=== PATIENT | male | born 1975 | race Caucasian/White ===

== ENCOUNTER 2016-12-25 13:34 | Emergency (ER) | payer BC ==
[2016-12-25 13:35] VITALS: BMI 21.5
[2016-12-25 13:42] VITALS: BP 115/71; PULSE 72; RESP 18; TEMP 96.8; O2SAT 99
--- NOTE | 2016-12-25 14:44 | ED PDOC ---
Lower Extremity Pain/Injury Time Seen by Provider: 12/25/16 13:43 Chief Complaint (Nursing): Lower Extremity Problem/Injury Chief Complaint (Provider): Lower Extremity Problem/Injury History Per: Patient History/Exam Limitations: no limitations Onset/Duration Of Symptoms: Mins (<1 hour prior to arrival ) Current Symptoms Are (Timing): Still Present Additional Complaint(s): Mani Parekh is a 41 year old male presenting to the ED for an evaluation of a left foot injury occurring prior to arrival. The patient states less than one hour prior to arrival a hand-truck accidentally dropped on his left foot. The patient noticed swelling to his left foot immediately after the accident. He denies numbness and tingling. PMD: Cecelia Caldwell MD Past Medical History Reviewed: Historical Data, Nursing Documentation, Vital Signs Vital Signs: Last Vital Signs Temp 96.8 F L 12/25/16 13:39 Pulse 72 12/25/16 13:39 Resp 18 12/25/16 13:39 BP 115/71 12/25/16 13:39 Pulse Ox 99 12/25/16 13:39 - Medical History PMH: Asthma (in childhood) - Family History Family History: States: Unknown Family Hx - Social History Current smoker - smoking cessation education provided: Yes Alcohol: Other Drugs: Cannabis - Home Medications Home Medications: Ambulatory Orders Medication Instructions Recorded Cyclobenzaprine [Flexeril] 5 mg PO BID PRN #10 tab 09/23/14 Ibuprofen [Motrin Tab] 800 mg PO TID #30 tab 09/23/14 Azithromycin [Zithromax] 250 mg PO DAILY #6 tablet 06/10/15 Ibuprofen [Motrin] 600 mg PO Q6H PRN #10 tab 06/10/15 Cyclobenzaprine [Flexeril] 10 mg PO Q8 PRN #15 tab 07/06/15 oxyCODONE/Acetaminophen [Percocet 1 ea PO Q6H PRN #15 tab 07/06/15 5/325 mg Tab] - Allergies Allergies/Adverse Reactions: Allergies Allergy/AdvReac Type Severity Reaction Status Date / Time No Known Allergies Allergy Verified 12/25/16 13:57 Review of Systems Musculoskeletal: Positive for: Foot Pain (left foot pain and swelling) Neurological: Negative for: Numbness (and no tingling) Physical Exam - Reviewed Nursing Documentation Reviewed: Yes Vital Signs Reviewed: Yes - Physical Exam Appears: Positive for: No Acute Distress Head Exam: Positive for: ATRAUMATIC, NORMOCEPHALIC Pulses-Dorsalis Pedis (L): 2+ Pulses-Dorsalis Pedis (R): 2+ Extremity: Positive for: Capillary Refill (<2 seconds), Other (dorsal surface of left foot: golf ball size swelling with tenderness). Negative for: Deformity (and no ecchymosis ) Neurologic/Psych: Positive for: Alert, Oriented - ECG O2 Sat by Pulse Oximetry: 99 (RA) Pulse Ox Interpretation: Normal Medical Decision Making Medical Decision Making: Time: 13:43 Impression: Lower Extremity Problem/Injury Plan: * [RAD] Foot Left 3 Views Routine * Reevaluation X-ray showed no fracture. Applied Light dressing on foot and crutches were provided. Scribe Attestation: Documented by Raven Teixeira, acting as a scribe for Martínez Cox PA-C. Provider Scribe Attestation: All medical record entries made by the Scribe were at my direction and personally dictated by me. I have reviewed the chart and agree that the record accurately reflects my personal performance of the history, physical exam, medical decision making, and the department course for this patient. I have also personally directed, reviewed, and agree with the discharge instructions and disposition. Disposition - Clinical Impression Clinical Impression: Foot contusion - Patient ED Disposition Is Patient to be Admitted: No - Disposition Referrals: [facility] [Outside] Gilberto Braun DPM [[facility]] - Disposition: Routine/Home Disposition Time: 14:15 Condition: STABLE Instructions: Foot Contusion (ED), RICE Therapy (ED) Forms: Dakota Carl (Turkmen), [facility] ED School/Work Excuse Print Language: KAZAKH
--- NOTE | 2016-12-25 22:36 | RAD ---
PROCEDURE: Left Foot Radiographs. HISTORY: trauma COMPARISON: None. FINDINGS: BONES: Normal. No fracture. JOINTS: Normal. SOFT TISSUES: Dorsal soft tissue swelling. OTHER FINDINGS: None. IMPRESSION: Dorsal soft tissue swelling.
== END 2016-12-25 14:39 | disposition home or self-care (01) ==
LOC: H.ER 13:34
DX: S90.32XA Contusion of left foot, initial encounter (principal); W22.8XXA Striking against or struck by other objects, initial encounter; Y92.89 Other specified places as the place of occurrence of the external cause

== ENCOUNTER 2017-07-30 15:05 | Emergency (ER) | payer BC ==
[2017-07-30 15:06] VITALS: BMI 21.5
[2017-07-30 15:12] VITALS: RESP 18; TEMP 97.8; O2SAT 99
[2017-07-30] MEDS ORDERED: Sodium Chloride 0.9% 1,000 ML IV STA (15:33)
--- NOTE | 2017-07-30 15:36 | ED PDOC ---
HPI: Male Pain Time Seen by Provider: 07/30/17 15:27 Chief Complaint (Nursing): Male Genitourinary Chief Complaint (Provider): Testicular pain History Per: Patient History/Exam Limitations: no limitations Additional Complaint(s): Pt reports sudden onset of bilateral testicular pain X 15 minutes, no trauma, no heavy lifting, also feels bump L groin. Denies fever, nausea, vomiting, abdominal pain, dysuria, hematuria, penile discharge. Past Medical History Reviewed: Nursing Documentation, Vital Signs Vital Signs: Last Vital Signs Temp 97.8 F 07/30/17 15:10 Pulse 72 07/30/17 15:10 Resp 18 07/30/17 15:10 BP 122/82 07/30/17 15:10 Pulse Ox 99 07/30/17 15:10 - Medical History PMH: Asthma (in childhood) - Surgical History Other surgeries: Hemorrhoidectomy - Family History Family History: States: Unknown Family Hx - Social History Current smoker - smoking cessation education provided: No Alcohol: None - Home Medications Home Medications: Ambulatory Orders Medication Instructions Recorded Cyclobenzaprine [Flexeril] 5 mg PO BID PRN #10 tab 09/23/14 Ibuprofen [Motrin Tab] 800 mg PO TID #30 tab 09/23/14 Azithromycin [Zithromax] 250 mg PO DAILY #6 tablet 06/10/15 Ibuprofen [Motrin] 600 mg PO Q6H PRN #10 tab 06/10/15 Cyclobenzaprine [Flexeril] 10 mg PO Q8 PRN #15 tab 07/06/15 oxyCODONE/Acetaminophen [Percocet 1 ea PO Q6H PRN #15 tab 07/06/15 5/325 mg Tab] - Allergies Allergies/Adverse Reactions: Allergies Allergy/AdvReac Type Severity Reaction Status Date / Time No Known Allergies Allergy Verified 12/25/16 13:57 Review of Systems Constitutional: Negative for: Fever, Chills Cardiovascular: Negative for: Chest Pain Respiratory: Negative for: Cough, Shortness of Breath Gastrointestinal: Negative for: Nausea, Vomiting, Abdominal Pain, Diarrhea Genitourinary Male: Positive for: Scrotal Pain (Bilateral testicular pain). Negative for: Dysuria, Hematuria, Penile Discharge, Rash, Penile Pain Musculoskeletal: Negative for: Back Pain Skin: Negative for: Rash, Lesions Neurological: Negative for: Headache, Dizziness Physical Exam - Reviewed Nursing Documentation Reviewed: Yes Vital Signs Reviewed: Yes - Physical Exam Appears: Positive for: Uncomfortable Skin: Positive for: Normal Color, Warm, Dry Cardiovascular/Chest: Positive for: Regular Rate, Rhythm Respiratory: Positive for: Normal Breath Sounds Male Genital Exam: Positive for: normal genitalia, no hernia, inguinal tenderness (L), testicular tenderness (R), testicular tenderness (L), other ( Normal lie bilateral testicles). Negative for: bleeding, erythema, urethral discharge Back: Positive for: Normal Inspection Extremity: Positive for: Tenderness Neurologic/Psych: Positive for: Alert, Oriented - ECG O2 Sat by Pulse Oximetry: 99 Medical Decision Making Medical Decision Makin yo male with bilateral testicular pain. - labs - testicular ultrasound - CT abd/pelvis - Morphine - IVF Disposition - Disposition
[2017-07-30 16:08] LABS: BASO # 0.1 K/uL (0.0-0.2); BASO % 1.3 % (0.0-2.0); EOS # 0.2 K/uL (0.0-0.7); EOS % 2.5 % (0.0-4.0); HEMOGLOBIN 13.8 g/dL (12.0-18.0); LYMPH # 2.9 K/uL (1.0-4.3); LYMPH % 40.4 % (20.0-40.0); MEAN CELL VOLUME 98.5 fl (80.0-94.0); MEAN CORPUSCULAR HEMOGLOBIN 33.2 pg (27.0-31.0); MEAN CORPUSCULAR HGB CONC 33.7 g/dL (33.0-37.0); MEAN PLATELET VOLUME 8.6 fl (7.2-11.7); MONO # 0.6 K/uL (0.0-0.8); MONO % 8.7 % (0.0-10.0); NEUT # 3.4 K/uL (1.8-7.0); NEUT % 47.1 % (50.0-75.0); RBC 4.15 Mil/uL (4.40-5.90); RED CELL DISTRIBUTION WIDTH 13.3 % (11.5-14.5); WHITE BLOOD COUNT 7.1 K/uL (4.8-10.8)
[2017-07-30 16:16] LABS: INR 1.2 (0.9-1.2); PROTHROMBIN TIME 13.5 Seconds (9.8-13.1)
[2017-07-30 16:17] LABS: PARTIAL THROMBOPLASTIN TIME 33.9 Seconds (25.6-37.1)
[2017-07-30 16:48] LABS: ALB/GLOB RATIO 1.3 (1.0-2.1); ALBUMIN 4.1 g/dL (3.5-5.0); ALT/SGPT 33 U/L (21-72); AST/SGOT 30 U/L (17-59); BLOOD UREA NITROGEN 23 mg/dl (9-20); CALCIUM 9.6 mg/dL (8.4-10.2); GFR AFRICAN-AMERICAN > 60; GFR NON-AFRICAN AMERICAN > 60
--- NOTE | 2017-07-30 17:04 | US ---
HISTORY: Bilateral pain TECHNIQUE: Realtime sonography through the scrotum with color and doppler flow. COMPARISON: None Available. FINDINGS: RIGHT TESTICLE: Measures 3.7 x 1.8 x 3.0 cm. Normal echotexture and flow. RIGHT EPIDIDYMIS: Epididymal head measures 0.9 x 0.8 x 0.8 cm. Grossly unremarkable appearance with normal flow. LEFT TESTICLE: Measures 4.0 x 2.0 x 2.9 cm. Normal echotexture and flow. LEFT EPIDIDYMIS: Epididymal head measures 0.7 x 0.8 x 1.0 cm. Grossly unremarkable appearance with normal flow. HYDROCELE: None. VARICOCELE: None. OTHER FINDINGS: None. IMPRESSION: Unremarkable testicular ultrasound
[2017-07-30 18:39] LABS: URINE BILIRUBIN NEGATIVE (NEGATIVE); URINE BLOOD NEGATIVE (NEGATIVE); URINE CLARITY SLIGHTY-CLOUDY (Clear); URINE COLOR YELLOW (YELLOW); URINE GLUCOSE (UA) NEG (Normal); URINE LEUKOCYTE ESTERASE NEG Leu/uL (Negative); URINE PROTEIN NEGATIVE (NEGATIVE); URINE UROBILINOGEN 0.2-1.0 mg/dL (0.2-1.0)
[2017-07-30] MEDS ORDERED: Iohexol 300 100 ML IJ ONE (18:52)
[2017-07-30] MEDS ORDERED: Sodium Chloride 0.9% 100 ML ONE (18:53)
--- NOTE | 2017-07-30 19:22 | ED PDOC ---
- Laboratory Results Result Diagrams: 07/30/17 16:04 07/30/17 16:04 - ECG O2 Sat by Pulse Oximetry: 99 - Progress Re-evaluation Time: 20:45 Condition: Re-examined, Improved Medical Decision Making Medical Decision Making: Time: 19:00 Patient signed over to me by Dr. Arana pending CT abdomen, reevaluation, and final disposition. Time: 20:47 CT Abdomen and Pelvis: FINDINGS: Lung bases: No acute abnormality as visualized. ABDOMEN: Liver: No acute abnormality as visualized. Gallbladder and bile ducts: No acute abnormality as visualized. Pancreas: No acute abnormality as visualized. Spleen: No splenomegaly. Adrenals: No acute abnormality as visualized. Kidneys and ureters: No acute abnormality as visualized. Symmetric emhancement. No hydronephrosis. Stomach and bowel: Limited evaluation without enteric contrast. Retained fecal material in the colon. No obstruction. No definitive focus of mucosal thickening. No findings to suggest acute appendicitis. PELVIS: Bladder: No acute abnormality as visualized. Reproductive: No acute abnormality as visualized. ABDOMEN and PELVIS: Intraperitoneal space: No free air. No significant fluid collection. Bones/joints: Mild degenerative changes. Soft tissues: No acute abnormality as visualized. Vasculature: No acute abnormality as visualized. No abdominal aortic aneurysm. Lymph nodes: No acute abnormality as visualized. IMPRESSION: No definitive acute abnormality to correspond to reported history. Correlate with ultrasound. Patient is medically stable for discharge at this time. Return precautions were provided. Scribe Attestation: Documented by Genaro Velazquez, acting as a scribe for Britni Lam MD. Provider Scribe Attestation: All medical record entries made by the Scribe were at my direction and personally dictated by me. I have reviewed the chart and agree that the record accurately reflects my personal performance of the history, physical exam, medical decision making, and the department course for this patient. I have also personally directed, reviewed, and agree with the discharge instructions and disposition. Disposition Doctor Will See Patient In The: Office Counseled Patient/Family Regarding: Studies Performed, Diagnosis, Need For Followup - Clinical Impression Clinical Impression: Groin pain - POA Present On Arrival: None - Disposition Referrals: [facility] [Outside] Disposition: Routine/Home Disposition Time: 20:47 Additional Instructions: Take motrin for pain. Follow up with your PCP in 2- 3 days. Instructions: Groin Strain
--- NOTE | 2017-07-30 20:45 | CT ---
EXAM: CT Abdomen and Pelvis With Intravenous Contrast CLINICAL HISTORY: 41 years old, male; Pain; Other: Pain in testicles; Additional info: L groin pain TECHNIQUE: Axial computed tomography images of the abdomen and pelvis with intravenous contrast. All CT scans at this facility use one or more dose reduction techniques, viz.: automated exposure control; ma/kV adjustment per patient size (including targeted exams where dose is matched to indication; i.e. head); or iterative reconstruction technique. Coronal and sagittal reformatted images were created and reviewed. CONTRAST: 96 mL of omnipaque administered intravenously. COMPARISON: No relevant prior studies available. FINDINGS: Lung bases: No acute abnormality as visualized. ABDOMEN: Liver: No acute abnormality as visualized. Gallbladder and bile ducts: No acute abnormality as visualized. Pancreas: No acute abnormality as visualized. Spleen: No splenomegaly. Adrenals: No acute abnormality as visualized. Kidneys and ureters: No acute abnormality as visualized. Symmetric emhancement. No hydronephrosis. Stomach and bowel: Limited evaluation without enteric contrast. Retained fecal material in the colon. No obstruction. No definitive focus of mucosal thickening. No findings to suggest acute appendicitis. PELVIS: Bladder: No acute abnormality as visualized. Reproductive: No acute abnormality as visualized. ABDOMEN and PELVIS: Intraperitoneal space: No free air. No significant fluid collection. Bones/joints: Mild degenerative changes. Soft tissues: No acute abnormality as visualized. Vasculature: No acute abnormality as visualized. No abdominal aortic aneurysm. Lymph nodes: No acute abnormality as visualized. IMPRESSION: No definitive acute abnormality to correspond to reported history. Correlate with ultrasound.
[2017-07-30 21:13] VITALS: BP 122/86; PULSE 54
== END 2017-07-30 21:10 | disposition home or self-care (01) ==
LOC: H.ER 15:05
DX: N50.819 Testicular pain, unspecified (principal); R10.30 Lower abdominal pain, unspecified
CPT/HCPCS: 74177; 80053; 81003; 85025; 85610; 85730; 93975; 96374; 99282; J2270; J7040; Q9967

== ENCOUNTER 2018-02-10 23:47 | Emergency (ER) | payer BC ==
[2018-02-10 23:48] VITALS: BMI 21.5
[2018-02-10 23:59] VITALS: BP 108/57; PULSE 74; RESP 16; TEMP 98.2; O2SAT 98
== END 2018-02-11 | disposition left against medical advice (07) ==
LOC: H.ER 23:47
DX: Z02.89 Encounter for other administrative examinations (principal)